=== PATIENT | male | born 1975 | race Caucasian/White ===

== ENCOUNTER → 2023-01-11 | Outpatient (CLI) | payer OTHER ==
[~2023-01-11] VITALS: Wt 144.7 kg
== END | disposition home or self-care (01) ==
LOC: DTH 12:21
PROVIDERS: ATTEND Surgery
DX: Z71.3 Dietary counseling and surveillance (principal); E66.01 Morbid (severe) obesity due to excess calories; M19.91 Primary osteoarthritis, unspecified site; K21.9 Gastro-esophageal reflux disease without esophagitis; G47.33 Obstructive sleep apnea (adult) (pediatric); Z68.41 Body mass index [BMI] 40.0-44.9, adult
CPT/HCPCS: 97802

== ENCOUNTER → 2023-10-27 | Outpatient (CLI) | payer OTHER ==
[~2023-10-27] MED LIST: APIX5TAB PO; CYAN-118 PO; DIATR MEGLU/DIATRIZOATE SODIUM 30 ML BOTTLE ONE; FAMO40TA7 PO; MVIT PO; PANT40TA54 PO; THIA50TA16 PO
== END | disposition home or self-care (01) ==
LOC: RAH 09:14
PROVIDERS: ATTEND Internal Medicine Critical Care Medicine
DX: K29.90 Gastroduodenitis, unspecified, without bleeding (principal); K65.9 Peritonitis, unspecified
CPT/HCPCS: 74240; Q9963

== ENCOUNTER → 2023-11-03 | Outpatient (CLI) | payer OTHER ==
[~2023-11-03] MED LIST changes: -DIATR MEGLU/DIATRIZOATE SODIUM 30 ML BOTTLE ONE
== END | disposition home or self-care (01) ==
LOC: RAH 14:44
PROVIDERS: ATTEND Surgery
DX: I82.413 Acute embolism and thrombosis of femoral vein, bilateral (principal); I82.433 Acute embolism and thrombosis of popliteal vein, bilateral; I82.453 Acute embolism and thrombosis of peroneal vein, bilateral; I82.890 Acute embolism and thrombosis of other specified veins; M79.605 Pain in left leg
CPT/HCPCS: 93970

== ENCOUNTER 2023-11-10 06:15 | Day surgery (SDC) | payer OTHER ==
[2023-11-10] VITALS (14 sets, daily range): BP systolic 96–138; BP diastolic 50–84; PULSE 68–84; RESP 14–16
[~2023-11-10] VITALS: Ht 182.9 cm; Wt 122.9 kg
[2023-11-10] MEDS: 0.9%NACL 1000ML 1,000 ML IV ONE (07:58)
[2023-11-10] MEDS ORDERED: PROPOFOL 10 MG/ML 20ML VIAL IV ONE ×3 (08:22→08:41)
== END 2023-11-10 10:06 | disposition home or self-care (01) ==
LOC: DAH 06:15 → ENDO 06:15
PROVIDERS: ATTEND Surgery
DX: Z46.59 Encounter for fitting and adjustment of other gastrointestinal appliance and device (principal); R53.82 Chronic fatigue, unspecified; K20.90 Esophagitis, unspecified without bleeding; K95.89 Other complications of other bariatric procedure; M79.605 Pain in left leg; E66.01 Morbid (severe) obesity due to excess calories; Z79.899 Other long term (current) drug therapy; Z90.49 Acquired absence of other specified parts of digestive tract; Z98.890 Other specified postprocedural states; Z90.89 Acquired absence of other organs; Z98.84 Bariatric surgery status; Z87.891 Personal history of nicotine dependence; Z68.39 Body mass index [BMI] 39.0-39.9, adult; Z97.8 Presence of other specified devices
CPT/HCPCS: 43247; J7030 ×2; J2704 ×3; A4620; A4215; A4223; A7002; A4222; A4221; A4663; A4606; J3490

== ENCOUNTER 2025-06-20 07:41 | Day surgery (SDC) | payer OTHER ==
[2025-06-19 09:03] VITALS: BP 113/59; PULSE 72; RESP 13; TEMP 97.4
[2025-06-19 09:13] LABS: IMMATURE GRANULOCYTE ABSOLUTE 0.03 K/uL (0-1); NUCLEATED RED BLOOD CELLS 0.0 % (0.0-0.19); PLATELET COUNT (AUTO) 379 K/uL (130-400); RED BLOOD CELL COUNT(AUTO) 4.98 MIL/uL (4.50-6.20); RED CELL DISTRIBUTION WIDTH 13.7 % (11.0-15.5); WHITE BLOOD COUNT (AUTO) 6.7 K/uL (4.8-10.8)
[2025-06-19 09:29] LABS: INR 1.12 (0.85-1.15)
[2025-06-19 09:33] LABS: ASPARTATE AMINOTRANSFERASE 22.0 U/L (10-37); CREATININE 0.9 mg/dL (0.5-1.3); GLOMERULAR FILTR. RATE CALC 105.0 mL/min (>90); GLUCOSE,RANDOM 116.0 mg/dL (70-105); SODIUM SERUM 142.0 mmol/L (136-145); TOTAL PROTEIN, SERUM 7.8 g/dL (6.0-8.3); UREA NITROGEN, BLOOD 13.0 mg/dL (7-18)
--- NOTE | 2025-06-19 12:23 | EKG ---
[facility] Test Date: 2025-06-19 Test Time: 08:52:28 Pat Name: VI ANDERSON Department: [facility] Room: Gender: M Rehabilitation Services Director: [id number] : 1975 Requested By: TANYA ARROYO Order Number: [id number] Reading MD: Jesus Conde Measurements Intervals Mena Rate: 74 P: 13 OH: 182 QRS: 14 QRSD: 106 T: 10 QT: 407 QTc: 451 Interpretive Statements Sinus rhythm ST elev, probable normal early repol pattern Compared to ECG 01/23/2024 06:11:31 ST (T wave) deviation now present Electronically Signed On 06-19-2025 21:32:55 CDT by Jesus Conde Please click the below link to view image of tracing.
--- NOTE | 2025-06-19 13:45 | NUR ---
report reported egk to dr parr. ok to proceed
[~2025-06-20] VITALS: Ht 182.9 cm; Wt 111.4 kg
[2025-06-20] VITALS (16 sets, daily range): BP systolic 102–127; BP diastolic 55–78; PULSE 60–76; RESP 14–18; TEMP 97.1–208.2
[~2025-06-20 07:41] MED LIST changes: +AMOX250C4 PO; -APIX5TAB PO; -CYAN-118 PO; +DABI150C PO; -FAMO40TA7 PO; +LEVO-70 PO; -MVIT PO; -THIA50TA16 PO
[2025-06-20] MEDS: 0.9%NACL 1000ML 1,000 ML IV ONE (08:12)
[2025-06-20] MEDS ORDERED: SUCCINYLCHOLINE CHLORIDE 20 MG/ML 10 ML VIAL ONE (12:08)
[2025-06-20] MEDS ORDERED: LIDOCAINE PF 100MG/5ML (2%) SYRINGE 5ML ONE (12:08)
[2025-06-20] MEDS ORDERED: ATROPINE 1MG SYG IVP ONE (12:12)
[2025-06-20] MEDS ORDERED: CLINDAMYCIN IVPB 600MG/50ML 50 ML IV ONE (12:38)
[2025-06-20] MEDS ORDERED: GLYCOPYRROLATE 0.2 MG/ML 5 ML VIAL ONE ×2 (12:55→12:58)
[2025-06-20] MEDS ORDERED: NEOSTIGMINE METHYLSULFATE 1MG/ML IV ONE (12:58)
== END 2025-06-20 16:08 | disposition home or self-care (01) ==
LOC: DAH 07:41
PROVIDERS: ATTEND Surgery
DX: K20.90 Esophagitis, unspecified without bleeding (principal); K31.6 Fistula of stomach and duodenum; K22.89 Other specified disease of esophagus; K91.2 Postsurgical malabsorption, not elsewhere classified; E55.9 Vitamin D deficiency, unspecified; E66.01 Morbid (severe) obesity due to excess calories; I26.99 Other pulmonary embolism without acute cor pulmonale; J90 Pleural effusion, not elsewhere classified; Z68.34 Body mass index [BMI] 34.0-34.9, adult; Z98.84 Bariatric surgery status; Z79.899 Other long term (current) drug therapy
CPT/HCPCS: 80053; 85025; 85610; 85730; 86850; 86900; 86901; 36415; 93005; 43270; A6260; C9901; J3010; J0690; J0330; J7030; J3490 ×5; J2003; J0461; J2704; J2710; C1726; A4215 ×2; A4223; A4657 ×2; A7002; A4222; A4221; A4663; A4606